=== PATIENT | male | born 1985 | race Caucasian/White ===

== ENCOUNTER 2017-01-31 17:53 | Emergency (ER) | payer OTHER ==
[~2017-01-31] VITALS: Ht 167.6 cm; Wt 67.6 kg
[2017-01-31 18:56] VITALS: BP 125/86
--- NOTE | 2017-01-31 19:00 | NUR ---
Patient to bed 06.
--- NOTE | 2017-01-31 19:20 | NUR ---
Pt report given to RAMONA MISHRA. Transfer of care at this time.
--- NOTE | 2017-01-31 19:21 | NUR ---
31/M BIB FAMILY C/O THROAT PAIN x ONE WEEK. DENIES N/V/D; SKIN IS PINK/WARM/DRY; AAOX4 WITH EVEN AND STEADY GAIT; LUNGS CLEAR BL; HR EVEN AND REGULAR; PATIENT STATES PAIN OF 5/10 AT THIS TIME; VSS; PATIENT POSITIONED FOR COMFORT; HOB ELEVATED; BEDRAILS UP X2; BED DOWN. ER MD MADE AWARE OF PT STATUS.
--- NOTE | 2017-01-31 20:45 | NUR ---
Note vanone in EDM - 01/31/17 at 2049 by MEDAUGUST Patient discharged with v/s stable. Written and verbal after care instructions given and explained. Patient alert, oriented and verbalized understanding of instructions. Ambulatory with steady gait. All questions addressed prior to discharge. ID band removed. Patient advised to follow up with PMD. Rx of MACROBID CAPSULES given. Patient educated on indication of medication including possible reaction 100MG and side effects. Opportunity to ask questions provided and answered.
[2017-01-31 20:46] VITALS: BP 122/82
--- NOTE | 2017-01-31 20:49 | NUR ---
Patient discharged with v/s stable. Written and verbal after care instructions given and explained. Patient alert, oriented and verbalized understanding of instructions. Ambulatory with steady gait. All questions addressed prior to discharge. ID band removed. Patient advised to follow up with PMD. Rx of AUGMENTIN 875MG TABLET given. Patient educated on indication of medication including possible reaction and side effects. Opportunity to ask questions provided and answered.
== END 2017-01-31 20:49 | disposition home or self-care (01) ==
LOC: MED 17:53
DX: J02.9 Acute pharyngitis, unspecified (principal); R03.0 Elevated blood-pressure reading, without diagnosis of hypertension
CPT/HCPCS: 99283

== ENCOUNTER 2017-02-01 18:52 | Emergency (ER) | payer OTHER ==
[~2017-02-01] VITALS: Ht 167.6 cm; Wt 68.0 kg
[2017-02-01 20:09] VITALS: BP 98/65
--- NOTE | 2017-02-01 20:32 | NUR ---
31 Y/O M dragan chacon, pt was here last night and given abx for tonsils and norco. started feeling "funny" today. PT WENT HOME WITH A RX FOR ANTIBIOTICS. STATES WOKE UP FEELING FUNNY, AND LOST HEARING ON L EAR. NO S/S OF DISTRESS NOTED AT THE MOMENT.
--- NOTE | 2017-02-01 20:33 | NUR ---
Patient to OF.
--- NOTE | 2017-02-01 20:36 | NUR ---
BALBUENA evaluating patient.
[2017-02-01] MEDS ORDERED: DEXAMETHASONE 10 MG/ML VIAL IM ONE (20:40)
[2017-02-01 21:27] VITALS: BP 126/86
--- NOTE | 2017-02-01 21:27 | NUR ---
Patient discharged with v/s stable. Written and verbal after care instructions given and explained. Patient alert, oriented and verbalized understanding of instructions. Ambulatory with steady gait. All questions addressed prior to discharge. ID band removed. Patient advised to follow up with PMD OR RETURN TO ER IF CONDITION WORSENS Rx of IBUPROFEN 800 given. Patient educated on indication of medication including possible reaction and side effects. Opportunity to ask questions provided and answered.
== END 2017-02-01 21:27 | disposition home or self-care (01) ==
LOC: MED 18:52
PROC: 3E033GC Introduction of Other Therapeutic Substance into Peripheral Vein, Percutaneous Approach (ICD-10-PCS; principal; 2017-02-01)
DX: J02.8 Acute pharyngitis due to other specified organisms (principal); T36.8X5A Adverse effect of other systemic antibiotics, initial encounter; F12.10 Cannabis abuse, uncomplicated; Y92.89 Other specified places as the place of occurrence of the external cause
CPT/HCPCS: 96372; 99283; J1100

== ENCOUNTER 2017-03-13 16:24 | Emergency (ER) | payer OTHER ==
[~2017-03-13] VITALS: Ht 167.6 cm; Wt 68.0 kg
[2017-03-13 16:40] VITALS: BP 141/70
--- NOTE | 2017-03-13 19:19 | NUR ---
PT TAKEN TO BED 4
--- NOTE | 2017-03-13 19:25 | NUR ---
31 Y/O W/C/O OF SORETHROAT X 1 WK. PT STATES WAS PLACED ON ANIBIOTICS AT [facility]RGENT [facility]ARE X 2 DAYS AGO BUT STILL NOT BETTER.
[2017-03-13 19:32] VITALS: BP 128/85
--- NOTE | 2017-03-13 19:32 | NUR ---
Patient discharged with v/s stable. Written and verbal after care instructions given and explained. Patient verbalized understanding. Ambulatory with steady gait. All questions addressed prior to discharge. Advised to follow up with PMD R RETURN TO ER IF CONDITION WORSENS.
== END 2017-03-13 19:32 | disposition home or self-care (01) ==
LOC: MED 16:24
DX: J02.9 Acute pharyngitis, unspecified (principal); R03.0 Elevated blood-pressure reading, without diagnosis of hypertension; Z88.0 Allergy status to penicillin
CPT/HCPCS: 99281

== ENCOUNTER 2017-11-03 19:32 | Emergency (ER) | payer OTHER ==
[~2017-11-03] VITALS: Ht 167.6 cm; Wt 72.1 kg
[2017-11-03 19:40] VITALS: BP 144/90
--- NOTE | 2017-11-03 20:29 | NUR ---
PT TAKEN TO OF2
--- NOTE | 2017-11-03 20:40 | NUR ---
Patient being evaluated by at bedside.
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
[2017-11-03] MEDS ORDERED: DIAZEPAM 5 MG TAB PO ONE (20:55)
[2017-11-03] MEDS ORDERED: KETOROLAC 30 MG/ML VIAL IM ONE (20:55)
--- NOTE | 2017-11-03 21:30 | NUR ---
Patient discharged with v/s stable. Written and verbal after care instructions given and explained. Patient alert, oriented and verbalized understanding of instructions. Ambulatory with steady gait. All questions addressed prior to discharge. ID band removed. Patient advised to follow up with PMD. Rx of NAPROSYN 500 MG, VALIUM 5 MG given. Patient educated on indication of medication including possible reaction and side effects. Opportunity to ask questions provided and answered.
[2017-11-03 21:44] VITALS: BP 115/73
== END 2017-11-03 21:30 | disposition home or self-care (01) ==
LOC: MED 19:32
DX: S39.012A Strain of muscle, fascia and tendon of lower back, initial encounter (principal); Z88.1 Allergy status to other antibiotic agents; V49.40XA Driver injured in collision with unspecified motor vehicles in traffic accident, initial encounter; Y93.89 Activity, other specified; Y92.411 Interstate highway as the place of occurrence of the external cause; Y99.8 Other external cause status
CPT/HCPCS: 72100; 96372; 99284; J1885